=== PATIENT | female | born 1960 | race Caucasian/White ===

== ENCOUNTER → 2020-03-18 | Outpatient (CLI) | payer BC ==
[~2020-03-18] MED LIST: BENADRYL25 MG PO; OYSTER SHELL C500 M3 PO; PEPCID20 MG PO; ZOFRAN ODT4 MG SL; Zofran4 MG PO
== END | disposition home or self-care (01) ==
LOC: COVID19 12:31
PROVIDERS: ATTEND Social Worker Clinical
DX: Z20.828 Contact with and (suspected) exposure to other viral communicable diseases (principal)

== ENCOUNTER 2020-05-30 18:27 | Emergency (ER) | payer BC ==
[~2020-05-30] VITALS: Ht 177.8 cm; Wt 86.2 kg
[2020-05-30] MEDS ORDERED: CYCLOBENZAPRINE10 MG PO (21:15)
== END 2020-05-30 21:37 | disposition home or self-care (01) ==
LOC: ED 18:27
DX: S16.1XXA Strain of muscle, fascia and tendon at neck level, initial encounter (principal); S09.90XA Unspecified injury of head, initial encounter; M50.30 Other cervical disc degeneration, unspecified cervical region; J45.909 Unspecified asthma, uncomplicated; W19.XXXA Unspecified fall, initial encounter; Y93.89 Activity, other specified; Y92.89 Other specified places as the place of occurrence of the external cause; Y99.8 Other external cause status